=== PATIENT | male | born 1965 | race Caucasian/White ===

== ENCOUNTER 2021-07-03 00:56 | Day surgery (SDC) | payer OTHER, SELFPAY ==
[2021-06-21 09:56] VITALS: BMI 25.8
--- NOTE | 2021-06-30 14:50 | PM.HPGS ---
History of Present Illness History of Present Illness Consent: Risks, benefits, and alternatives have been discussed and questions answered. Patient agrees to proceed with procedure. Chief complaint: hx of colon polyps, family hx of colon ca Narrative: Babar Nolasco is a 56 year old male His last colonoscopy was in 2012 which was negative except for the finding of hemorrhoids. He does have hx of polyps on prior colonoscopy exams. His Mother was dx with colon cancer in her 70's, treated with surgical resection. He denies any changes in bowel habits, diarrhea/constipation, weight loss, fever or abdominal pain. He rarely has BRBPR on tissue only after BM that he relates to hemorrhoids. Review of Systems Review of Systems: All systems reviewed & are unremarkable except as noted in HPI and below PMFSH Past Medical History Medical History Encounter for screening colonoscopy Hemorrhoids Hyperlipidemia Overweight Surgical History Surgical History H/O colonoscopy Social History Social History Smoking status: Never smoker Alcohol intake: current Alcohol use details: social Substance use: current Substance use type: does not use Living arrangements: with family Spiritual care concerns: No Meds Home Medications and Allergies Home Medications Medication Instructions Recorded Confirmed Type aspirin 81 mg tablet,delayed 81 mg PO DAILY 05/26/21 07/03/21 History release rosuvastatin 10 mg tablet 10 mg PO DAILY 05/26/21 07/03/21 History psyllium husk [Daily Fiber] 1 g PO DAILY 06/21/21 07/03/21 History Allergies Allergy/AdvReac Type Severity Reaction Status Date / Time No Known Allergies Allergy Unknown Verified 07/03/21 06:54 Exam Resp: Auscultation: clear to auscultation bilaterally Cardio: Rate: regular rate Rhythm: regular rhythm GI: GI Palp: Yes Soft to palpation and No Tenderness to palpation present (GI) Assessment and Plan Assessment and plan (1) Personal history of colonic polyps: Code(s): Z86.010 - Personal history of colonic polyps Status: Acute
[2021-07-03 06:55] VITALS: BP 147/98; PULSE 77; RESP 16; TEMP 36.9; O2SAT 99
[2021-07-03] MEDS: LACTATED RINGERS 1,000 ML 150 ML IV CONT (07:19)
--- NOTE | 2021-07-03 07:24 | WPDANESEPPF ---
Anes - Initial Pre Proc Eval Procedure: Operation Date: 07/03/21 08:00 Proposed Procedures p Screening Colonoscopy - Ramiro Lawrence MD Date/Time: 07/03/21 07:24 Surgeon: Ramiro Lawrence MD Pre Op Diagnosis: hx of colon polyps, family hx of colon ca Patient Data Age: 56 Gender: M Height: 1.73 m Weight: 78.8 kg Last Vital Signs Temp 36.9 C 07/03/21 06:55 Pulse 77 07/03/21 06:55 Resp 16 07/03/21 06:55 BP 147/98 H 07/03/21 06:55 Pulse Ox 99 07/03/21 06:55 Allergies Allergy/AdvReac Type Severity Reaction Status Date / Time No Known Allergies Allergy Unknown Verified 07/03/21 06:54 Home Medications Medication Instructions Recorded Confirmed Type aspirin 81 mg tablet,delayed 81 mg PO DAILY 05/26/21 07/03/21 History release rosuvastatin 10 mg tablet 10 mg PO DAILY 05/26/21 07/03/21 History psyllium husk [Daily Fiber] 1 g PO DAILY 06/21/21 07/03/21 History Patient hx anesthesia problems: none Family hx anesthesia problems: none Results Review: All pre-operative results and documents have been reviewed as part of the pre-operative evaluation. [facility] Past Medical History Medical History (Updated 07/03/21 @ 07:24 by Wolf Galdamez MD) Encounter for screening colonoscopy Hemorrhoids Hyperlipidemia Overweight Surgical History Surgical History (Updated 07/03/21 @ 07:24 by Wolf Galdamez MD) H/O colonoscopy Social History Social History Smoking status: Never smoker Alcohol intake: current Alcohol use details: social Substance use: current Substance use type: does not use Living arrangements: with family Spiritual care concerns: No Anes - Eval Final PreProcedure Day of Procedure 07/03/21 07:24 Patient weight: overweight Heart: regular rate and rhythm Lungs: clear to auscultation Airway: Mallampati scale class 1 Neurological: alert and oriented Last oral intake: >/= 8 hours ASA classification: II Emergent: no Anesthetic plan: proceed Anesthesia type and monitoring: general GIVS and standard monitoring Results Review: All pre-operative results and documents have been reviewed as part of the pre-operative evaluation. Informed Consent: The patient's anesthetic plan and its attendant risks and benefits were discussed with the patient/family/POA. Questions were solicited and answers provided to the satisfaction of the patient/family/POA.
[2021-07-03 08:06] VITALS: BP 109/68; PULSE 67; RESP 28; O2SAT 94
[2021-07-03 08:16] VITALS: BP 121/84; PULSE 64; RESP 20; O2SAT 96
[2021-07-03 08:26] VITALS: BP 125/81; PULSE 70; RESP 20; O2SAT 95
== END 2021-07-03 08:42 | disposition home or self-care (01) ==
PROVIDERS: PCP Nurse Practitioner Family; Visit Provider Internal Medicine Gastroenterology
PROC: 0DJD8ZZ Inspection of Lower Intestinal Tract, Via Natural or Artificial Opening Endoscopic (ICD-10-PCS; CPT 45378; principal; 2021-07-03 08:00)
DX: Z12.11 Encounter for screening for malignant neoplasm of colon (principal); K57.30 Diverticulosis of large intestine without perforation or abscess without bleeding; K64.8 Other hemorrhoids; Z86.010 Personal history of colon polyps; Z80.0 Family history of malignant neoplasm of digestive organs; E78.5 Hyperlipidemia, unspecified; Z79.82 Long term (current) use of aspirin
CPT/HCPCS: 45378; J2704; J7120